=== PATIENT | male | born 1960 | race Caucasian/White ===

== ENCOUNTER 2023-09-24 06:47 | Day surgery (SDC) | payer MEDICAID ==
[2023-09-24] VITALS (15 sets, daily range): BP systolic 111–169; BP diastolic 56–93; PULSE 59–88; RESP 9–16; TEMP 97.9; O2SAT 92–100
[~2023-09-24] VITALS: Ht 177.8 cm; Wt 79.7 kg
[2023-09-24] MEDS: cefazolin 2gm/D5W 100mL 100 ML IV ONE (05:30)
[~2023-09-24 06:47] MED LIST: AMLO5TAB16 PO
[2023-09-24 07:47] LABS: BILIRUBIN,URINE NEGATIVE (Neg); CLARITY,URINE CLEAR (Clear); COLOR,URINE YELLOW (Yellow); GLUCOSE, URINE NEGATIVE (Neg); KETONES,URINE NEGATIVE (Neg); LEUKOCYTE ESTERASE ,URINE NEGATIVE (Neg); NITRITES, URINE NEGATIVE (Neg); OCCULT BLOOD,URINE NEGATIVE (Neg); PROTEIN,URINE NEGATIVE (Neg); UROBILINOGEN,URINE 0.2 E.U/dL (0.2-1.0)
[2023-09-24 07:51] LABS: BASOPHILS % (AUTO) 0.5 % (0-1); EOSINOPHILS # (AUTO) 0.4 X10'3 (0-0.9); EOSINOPHILS % (AUTO) 4.7 % (0-6); LYMPHOCYTES # (AUTO) 2.9 X10'3 (1.1-4.8); LYMPHOCYTES % (AUTO) 32.4 % (21-51); MEAN CORPUSCULAR HGB CONC 34.8 g/dL (33.0-36.5); MEAN CORPUSCULAR VOLUME 91.8 FL (78-98); MEAN PLATELET VOLUME 7.4 FL (7.4-10.4); MONOCYTES # (AUTO) 0.7 X10'3 (0-0.9); MONOCYTES % (AUTO) 7.5 % (2-12); NEUTROPHILS # (AUTO) 4.9 X10'3 (1.8-7.7); NEUTROPHILS % (AUTO) 54.9 % (42-75); PRE OP HEMATOCRIT 45.9 % (42.0-52.0); PRE OP PLATELET COUNT 239 X10'3 (140-440); RED BLOOD COUNT 4.99 X10'6 (4.70-6.10); RED CELL DISTRIBUTION WIDTH 12.6 % (11.5-14.5)
[2023-09-24 07:55] LABS: UA COLLECTION TYPE NON-SPECIFIED
[2023-09-24 08:08] LABS: ALANINE AMINOTRANSFERASE 33 U/L (12-78); ALBUMIN 4.1 G/DL (3.4-5.0); ALKALINE PHOSPHATASE 76 IU/L (46-116); ANION GAP 9 (8-16); ASPARTATE AMINO TRANSFERASE 17 U/L (10-37); BILIRUBIN,TOTAL 0.5 MG/DL (0.1-1.0); BLOOD UREA NITROGEN 12 MG/DL (7-18); BUN/CREATININE RATIO 13.6 (10.0-20.0); CALCIUM 8.9 MG/DL (8.5-10.1); CHLORIDE 106 MMOL/L (99-107); CREATININE 0.88 MG/DL (0.60-1.10); GLUCOSE 104 MG/DL (70-104); POTASSIUM 3.8 MMOL/L (3.5-5.1); SODIUM 141 MMOL/L (135-145); TOTAL CARBON DIOXIDE 25.7 MMOL/L (24-32); TOTAL PROTEIN 8.1 G/DL (6.4-8.2); eCRCL 88 ML/MIN; eGFR 87 ML/MIN
[2023-09-24] MEDS: famotidine 20mg tablet PO ONE (09:45)
[2023-09-24] MEDS: ringers solution, lacted 1,000 ML IV SCH (09:45)
[2023-09-24] MEDS ORDERED: fentaNYL/PF 50MCG/1 ML 2ML syringe ONE (10:09)
[2023-09-24] MEDS ORDERED: midazolam 1 mg/ML 2ml injection ONE (10:09)
[2023-09-24] MEDS ORDERED: meperidine/PF 25mg/ml syringe IV PRN ×2 (10:20)
[2023-09-24] MEDS ORDERED: morphine 4 MG/ML inj SYRINge IV PRN (10:20)
[2023-09-24] MEDS ORDERED: proCHLORperazine 10 MG/2 ml inj IV PRN (10:20)
[2023-09-24] MEDS ORDERED: ringers solution, lacted 1,000 ML IV SCH (10:20)
[2023-09-24] MEDS ORDERED: ondansetron/PF 4mg/2ml inj IV PRN (10:20)
[2023-09-24] MEDS ORDERED: morphine 2 MG/ML inj. syringe IV PRN (10:20)
[2023-09-24] MEDS ORDERED: acetaminophen 1000 MG/100ml vial IV ONE (11:31)
[2023-09-24] MEDS ORDERED: sevoflurane 250ml liquid IH ONE (11:31)
[2023-09-24] MEDS ORDERED: albumin (Human) 5% 250ml 250 ML IV ONE (11:45)
[2023-09-24] MEDS ORDERED: rocuronium 10mg/ml inj IV ONE (11:45)
[2023-09-24] MEDS ORDERED: propofol inj 20 ML IV ONE (11:45)
[2023-09-24] MEDS ORDERED: dexamethasone sod phosphate 4mg/ml inj. ONE (12:12)
[2023-09-24] MEDS ORDERED: ondansetron/PF 4mg/2ml inj ONE (12:39)
[2023-09-24] MEDS ORDERED: neostigmine methylsulfate 1 MG/ML 10ml vial ONE (12:40)
[2023-09-24] MEDS ORDERED: glycopyrrolate 0.2mg/ml inj ONE (12:42)
[2023-09-24] MEDS: BUPIVAcaine/PF 2.5mg/ml (0.25%) 10ml vial ONE (12:45)
[2023-09-24] MEDS: meperidine/PF 25mg/ml syringe IV PRN (13:14)
[2023-09-24] MEDS: HYDROcodone/acetaminophen 10/325mg tab PO ONE (13:45)
== END 2023-09-24 14:51 | disposition home or self-care (01) ==
LOC: PAS 06:47
PROVIDERS: ATTEND Surgery
DX: K42.0 Umbilical hernia with obstruction, without gangrene (principal); I10 Essential (primary) hypertension; J44.9 Chronic obstructive pulmonary disease, unspecified; F17.210 Nicotine dependence, cigarettes, uncomplicated; Z72.89 Other problems related to lifestyle; Z79.899 Other long term (current) drug therapy
CPT/HCPCS: 36415; 49594; 80053; 81003; 82948; 85025; J0131; J0690; J1100; J2175; J2250; J2405; J2704; J2710; J3010; J3490; J7030; J7120; P9045; Z7506; Z7508; Z7512; A4615; A4618; A7000